=== PATIENT | female | born 1955 ===

== ENCOUNTER 2021-07-12 17:00 | Emergency (ER) | payer OTHER ==
[2021-07-12] MEDS ORDERED: Acetaminophen 500 MG Tab PO ONE (19:46)
[2021-07-12] MEDS ORDERED: Lidocaine 1% 30 ML SDV INJECT ONE (19:48)
[2021-07-12] MEDS ORDERED: Bacitracin Oint 1 GM U/D Packet TOP ONE (20:36)
== END 2021-07-12 21:16 | disposition home or self-care (01) ==
LOC: DL.ED 17:00
DX: S62.632B Displaced fracture of distal phalanx of right middle finger, initial encounter for open fracture (principal); W23.0XXA Caught, crushed, jammed, or pinched between moving objects, initial encounter
CPT/HCPCS: 73140; 99283; A9270